=== PATIENT | male | born 1995 | race Two or more races ===

== ENCOUNTER 2016-09-14 16:55 | Emergency (ER) | payer MEDICAID, OTHER ==
[~2016-09-14] VITALS: Ht 165.1 cm; Wt 67.1 kg
[2016-09-14] MEDS ORDERED: cefTRIAXone SODIUM 250 MG VL IM ONE (18:45)
[2016-09-14] MEDS ORDERED: AZITHROMYCIN 250 MG TAB PO ONE (18:45)
[2016-09-14] MEDS ORDERED: KETOROLAC TROMETH 30 MG/ML 1ML VIAL IM ONE (19:45)
[2016-09-14 20:30] VITALS: BP 112/70
[2016-09-14] MEDS ORDERED: ONDANSETRON ODT 4 MG TAB PO ONE (20:30)
== END 2016-09-14 20:32 | disposition home or self-care (01) ==
LOC: ER 17:00 → EDBD 17:00 → ER 20:32
CPT/HCPCS: 71101 ×2; 96372 ×2; 99284; J0696 ×2; J1885 ×2; Q0162 ×2